=== PATIENT | male | born 1995 | race Caucasian/White ===

== ENCOUNTER 2017-06-16 22:22 | Emergency (ER) | payer BC, SELFPAY ==
[2017-06-16] VITALS (10 sets, daily range): BP systolic 104–150; BP diastolic 44–84; PULSE 55–105; RESP 12–20; TEMP 36.7; O2SAT 98–100; BMI 20.7
--- NOTE | 2017-06-16 22:40 | RAD_ITS ---
STUDY: X-RAY - LEFT SHOULDER REASON FOR EXAM: Male, 21 years old. Injury and pain TECHNIQUE: Two view(s) of the shoulder. COMPARISON: December 17, 2013 FINDINGS: There is dislocation of the humeral head from the glenoid. The acromioclavicular joint is normal in appearance. No acute abnormalities are seen in the visualized clavicle. No acute abnormalities are seen in the visualized humerus. The soft tissues are unremarkable. The visualized lungs and ribs are unremarkable. RAD/Shoulder min 2 Views IMPRESSION: There is anterior dislocation of the humerus. No acute fractures are seen. Electronically Signed: Sydni Viveros MD at 23:14 EST Tel Direct: [phone], Service support ,
--- NOTE | 2017-06-16 22:49 | ED.VISSUMM ---
- ER Visit Summary Date of Service: 06/16/17 Chief Complaint: Injury left shoulder History of Present Illness: The patient is a 21 M who is right-handed slipped on the ice and attempted to break his fall. He presents because of deformity to his left shoulder. He has dislocated the shoulder in the past. He states the labrum has been repaired ?2. He denies any paresthesia, anesthesia moderates. He denies any head trauma or loss of conscious. He denies any neck pain, paresthesia, anesthesia or motor weakness. He denies any cardiac respiratory symptoms. He denies allergy to egg products or soy products. He has had no complications with sedation in the past. Physical Examination: Vital signs are remarkable for an elevated blood pressure of 150/84. Heart rate is 105. Head is atraumatic normocephalic. Pupils are equal round reactive. Extraocular muscles are intact. TMs are pearly white with landmarks noted. Nares patent with no drainage. Posterior pharynx without erythema or exudate. Uvula is midline. There is no dysphonia or dysphasia. Trachea is midline. There is no stridor with auscultation of the neck. There is no pain the patient's cervical spine. There is deformity of the left shoulder with an empty glenoid fossa. There are surgical scars are well-healed. Axillary, median, radial and ulnar function intact. Heart is regular without murmur, gallop or rub. S1 and S2 are normal. Lungs are clear to auscultation with good movement of air bilaterally. He is alert and oriented with a nonfocal neurologic exam. Test Results: Two-view x-ray of the left shoulder was obtained which reveals a anterior subcoracoid left shoulder dislocation. Postreduction x-ray reveals reduction with no evidence of fracture. Emergency Department Course and Treatment: It was obtained to confirm this location and rule out fracture. Patient was consented for procedural sedation using propofol and or reduction of left anterior shoulder dislocation. He was given opportunity ask questions regarding the propofol. He had none. He was explained risk benefits using propofol versus other agents. Procedural time 4 minutes. Using traction countertraction technique left anterior shoulder dislocation was reduced easily with minimal effort Treatment Plan: Damian and follow-up with Dr. Derik Renee at the [facility] who patient is seen in the past Disposition: Discharged home with appropriate home-going instructions Impression: 1. Left anterior subcoracoid shoulder dislocation 2. Deep procedural sedation total time 4 minutes 3. Reduction of left anterior subcoracoid shoulder dislocation This note was generated with [employer] dictation software. It may contain incorrect words, spelling, and punctuation that were not noted in review of the chart prior to signing ED Disposition - Plan for ED Patient: Disposition: Home or Assisted Living Chief Complaint: Upper Extremity Injury Instructions: ED Dislocation Shoulder Redu, ED Sling and Swathe Referrals: Laron Nieto MD [Primary Care Provider] - Bacilio Renee MD [NON-STAFF] - 5-7 Days
--- NOTE | 2017-06-16 23:14 | RAD_ITS ---
STUDY: X-RAY - LEFT SHOULDER REASON FOR EXAM: Male, 21 years old. Post reduction TECHNIQUE: Two view(s) of the shoulder. COMPARISON: Images from the same day FINDINGS: The glenohumeral joint is within normal limits. The acromioclavicular joint is normal in appearance. No acute abnormalities are seen in the visualized clavicle. There is a defect in the greater tuberosity of the humeral head consistent with a Hill-Sachs deformity. The soft tissues are unremarkable. The visualized lungs and ribs are unremarkable. RAD/Shoulder min 2 Views IMPRESSION: Adequate reduction of the left humerus. A Bankart abnormality cannot be excluded along the inferior glenoid. There is a Hill-Sachs deformity in the humeral head. No discrete fractures are seen. Electronically Signed: Sydni Viveros MD at 0:01 EST Tel Direct: [phone], Service support ,
[2017-06-16] MEDS: Propofol 200 MG/20 ML Vial IV BOLUS (23:17)
[2017-06-16] MEDS: HYDROcodone Bitartrate/Apap 5/325 Tablet PO (23:43)
--- NOTE | 2017-06-16 23:50 | ED.RN ---
THIS RN REVIEWED DISCHARGE INSTRUCTIONS WITH PT AND PT FRIEND. PT VERBALIZES UNDERSTANDING. PT GIVEN HOME PACK AND INSTRUCTED ON PROPER USE OF MEDICATION. PT IV D/C AND COVERED WITH 2X2 GAUZE. ANGIO INTACT. MINIMAL BLEEDING NOTED. PT GIVEN WATER TO DRINK, ABLE TO SWALLOW WITHOUT DIFFICULTY. THIS RN PLACED SLING AND ISAIAH WRAPS AROUND PT SHOULDER FOR SUPPORT. RN AND RAIL GRINDER ASSISTED PT IN DRESSING, PLACED IN A PAPER SCRUB TOP. PT AMBULATORY HOME WITH NO ASSISTANCE FROM STAFF. FRIEND STATES SHE IS DRIVING HIM HOME. PT VOICES NO QUESTIONS.
== END 2017-06-16 23:55 | disposition home or self-care (01) ==
PROVIDERS: Emergency Provider Emergency Medicine; Family Provider Pediatrics; PCP Pediatrics
DX: S43.085A Other dislocation of left shoulder joint, initial encounter (principal); W00.0XXA Fall on same level due to ice and snow, initial encounter; Y93.89 Activity, other specified; Y92.89 Other specified places as the place of occurrence of the external cause; Y99.8 Other external cause status
CPT/HCPCS: 23650; 73030; 96374; 99284; J7030; A4216

== ENCOUNTER 2018-11-03 21:30 | Emergency (ER) | payer BC, SELFPAY ==
[2018-11-03] VITALS (9 sets, daily range): BP systolic 102–126; BP diastolic 51–66; PULSE 47–76; RESP 14–18; TEMP 37; O2SAT 96–100; BMI 20.4
--- NOTE | 2018-11-03 21:45 | RAD_ITS ---
STUDY: X-RAY - LEFT SHOULDER REASON FOR EXAM: Male, 23 years old. Dislocation TECHNIQUE: 3 view(s) of the shoulder. COMPARISON: Prior study of June 16, 2017 FINDINGS: There is anteromedial dislocation of the left shoulder joint. Normal acromioclavicular joint. Normal acromion. There is a defect of the superolateral aspect of the humeral head consistent with a Hill-Sachs deformity. The soft tissue structures are unremarkable. Normal visualized pulmonary apex. RAD/Shoulder min 2 Views IMPRESSION: Anteromedial dislocation of the left shoulder joint. Defect of the superolateral aspect of the left humeral head consistent with a Hill-Sachs deformity. Electronically Signed: Bryan Carrillo MD at 22:00 EDT , Service support ,
[2018-11-03] MEDS: fentaNYL 100 MCG/2 ML Ampul 50 MCG IV (22:45)
[2018-11-03] MEDS: Propofol 200 MG/20 ML Vial IV BOLUS (22:51)
--- NOTE | 2018-11-03 23:07 | RAD_ITS ---
STUDY: X-RAY - LEFT SHOULDER REASON FOR EXAM: Male, 23 years old. Post reduction TECHNIQUE: 2 view(s) of the shoulder. COMPARISON: Prior study of earlier this date FINDINGS: Normal glenohumeral articulation. Normal acromioclavicular joint. Normal acromion. Normal humeral head and visualized proximal humerus. The soft tissue structures are unremarkable. Normal visualized pulmonary apex. RAD/Shoulder min 2 Views IMPRESSION: Interval reduction of previously noted left shoulder dislocation. Osseous structures appear normal anatomic position at present. There is no evidence of fracture. Electronically Signed: Bryan Carrillo MD at 23:19 EDT , Service support ,
--- NOTE | 2018-11-03 23:19 | ED.DCSUM_ITS ---
- ER Visit Summary Date of Service: 11/03/18 Chief Complaint: Left shoulder dislocation History of Present Illness: The patient is a 23 M who has a history of recurrent left shoulder dislocation. He has had labral repair x2. Most recently by Dr. Renee at [facility]. Tonight he was walking the dog dog pulled and he dislocated left shoulder. Denies any other injuries. Denies any neurologic defects distal to the dislocation. Physical Examination: Afebrile vital signs stable Gen: Well-nourished well-developed Head: Normocephalic atraumatic Eyes: Perrl EOMI ENT: TMs clear no rhinorrhea moist mucous membranes Neck: Supple no lymphadenopathy no JVD nontender CVS: Regular rate rhythm no murmurs normal S1-S2 Respiratory: No distress clear to auscultation bilaterally chest nontender Abdomen: Soft nontender nondistended normal bowel sounds no masses Back: Nontender Extremity: There is an obvious anterior inferior dislocation to the left shoulder. Skin: Normal color no rash Neuro: alert orientated ?3 CN II-XII intact normal strength sensation Psych: Normal affect normal mood Test Results: Initial x-ray showed a dislocation. No fracture. Postreduction films show the shoulder to be reduced without fracture. Emergency Department Course and Treatment: Patient provided informed consent for the use of propofol for procedural sedation. Please see nursing seen documentation for preprocedural set up. Once adequate sedation was achieved the patient had his shoulder reduced using the standard Milch technique. This was obtained in the first attempt without difficulty. A sling and swath was placed. Patient was allowed to recover. Postreduction films obtained. He remained neurovascular intact. Patient to follow-up at [facility]. Impression: 1. Left anterior shoulder dislocation 2. Procedural sedation by emergency physician 3. Reduction of shoulder dislocation by emergency physician This note was generated with [employer] dictation software. It may contain incorrect words, spelling, and punctuation that were not noted in review of the chart prior to signing ED Disposition - Plan for ED Patient: Disposition: Home or Assisted Living Instructions: DISLOCATION: SHOULDER (Reduced) Prescriptions: Hydrocodone Bitart/Apap 5-325 [[place] 5MG-325MG] 1 tab PO Q6H PRN PRN 3 Days #12 tab PRN Reason: Pain Prescription Printed Additional Instructions: Please follow-up with your surgeon at [facility].
== END 2018-11-03 23:44 | disposition home or self-care (01) ==
PROVIDERS: Emergency Provider Emergency Medicine; Family Provider Pediatrics; PCP Pediatrics
DX: M24.412 Recurrent dislocation, left shoulder (principal)
CPT/HCPCS: 23650; 73030; 96361; 96374; 96375; 99285; J7040; A4216